=== PATIENT | male | born 1950 | race Caucasian/White ===

== ENCOUNTER 2019-07-21 13:15 | Emergency (ER) | payer OTHER ==
[2019-07-21] MEDS ORDERED: NA CHLORIDE 0.9% 1,000 ML ONE (14:53)
[2019-07-21 15:11] LABS: Basophils % 0.5 % (0-1.3); Hematocrit 37.7 % (39.6-49.0); Lymphocytes % 14.9 % (15.3-44.8); MPV 8.6 fL (7.6-11.3); RBC Red Blood Cell Count 3.81 M/uL (4.33-5.43)
[2019-07-21] MEDS ORDERED: ONDANSETRON 4 MG/2 ML VIAL ONE (15:16)
[2019-07-21] MEDS ORDERED: MORPHINE 4 MG/ML SYR ONE (15:16)
[2019-07-21 15:31] LABS: Albumin 3.6 g/dL (3.4-5.0); Bilirubin Direct 0.2 mg/dL (0-0.2); Bilirubin Total 0.6 mg/dL (0.2-1.0); Potassium 3.9 mmol/L (3.5-5.1)
--- NOTE | 2019-07-21 16:02 | RAD REPORT ---
EXAM DESCRIPTION: CT - Abdomen Pelvis Wo Contrast - 07/21/2019 3:41 pm CLINICAL HISTORY: r/o appendicitis Right lower quadrant pain COMPARISON: No comparisons TECHNIQUE: Axial [address] imaging of the abdomen and pelvis was performed without IV contrast. No IV contrast was given because of allergy, abnormal renal function, patient refusal or physician re quest. Oral contrast was given. All CT scans are performed using dose optimization technique as appropriate and may include automated exposure control or mA/KV adjustment according to patient size. FINDINGS: No suspicious findings in the lung bases. The liver, spleen and pancreas show no suspicious findings on non-contrast imaging. Gallbladder and b iliary tree are also without suspicious finding. Mild to moderate right-sided hydronephrosis is present secondary to a 4 mm UVJ stone. No other obstru cting or nonobstructing calculi. No significant adrenal finding. Isodense renal masses and pyeloneph ritis cannot be excluded in the absence of IV contrast. The urinary bladder is without significant fi nding. No dilated bowel loops or bowel wall thickening. No appendicitis findings or other acute GI process. No free air, free fluid or inflammatory stranding. No hernia, mass or bulky lymphadenopathy. No suspicious bony findings. IMPRESSION: Mild to moderate right-sided hydronephrosis secondary to a 4 mm UVJ calculus. Full assessment is limited is the absence of IV contrast.
[2019-07-21] MEDS ORDERED: TAMSULOSIN 0.4 MG SR CAP ONE (16:21)
[2019-07-21] MEDS ORDERED: MAGNESIUM SULFATE 1 gm IVPB 1 GM/100 ML BAG IV ONE (16:21)
--- NOTE | 2019-07-21 17:32 | EDPHYS ---
Physician Documentation [facility] Name: Osmin Dias Age: 68 yrs Sex: Male : 1950 Arrival Date: 07/21/2019 Time: 13:24 Bed 24 Private MD: ED Physician Biju Mckenna HPI: 07/21 15:20 This 68 yrs old Male presents to ER via Ambulatory with complaints of kb Abdominal Pain. 15:20 The patient presents with abdominal pain right lower quadrant. Onset: The kb symptoms/episode began/occurred 3 day(s) ago. The symptoms do not radiate. Associated signs and symptoms: none. The symptoms are described as intermittent. Modifying factors: The symptoms are alleviated by nothing, the symptoms are aggravated by pressure. Severity of pain: At its worst the pain was moderate in the emergency department the pain is unchanged. The patient has not experienced similar symptoms in the past. The patient has not recently seen a physician. Historical: - Allergies: 13:44 iodine; la1 - PMHx: 13:44 High Cholesterol; la1 - PSHx: 13:44 Hernia repair; la1 - Immunization history:: Adult Immunizations up to date. - Social history:: Smoking status: Patient/guardian denies using tobacco. - Ebola Screening: : No symptoms or risks identified at this time. ROS: 15:16 Constitutional: Negative for fever, chills, and weight loss, ENT: Negative for injury, kb pain, and discharge, Neck: Negative for injury, pain, and swelling, Cardiovascular: Negative for chest pain, palpitations, and edema, Respiratory: Negative for shortness of breath, cough, wheezing, and pleuritic chest pain, Back: Negative for injury and pain, MS/Extremity: Negative for injury and deformity, Skin: Negative for injury, rash, and discoloration, Neuro: Negative for headache, weakness, numbness, tingling, and seizure. 15:16 Abdomen/GI: Positive for abdominal pain, Negative for nausea, vomiting, and diarrhea. Exam: 15:20 Constitutional: This is a well developed, well nourished patient who is awake, alert, kb and in no acute distress. Head/Face: Normocephalic, atraumatic. Chest/axilla: Normal chest wall appearance and motion. Nontender with no deformity. No lesions are appreciated. Cardiovascular: Regular rate and rhythm with a normal S1 and S2. No gallops, murmurs, or rubs. Normal PMI, no JVD. No pulse deficits. Respiratory: Lungs have equal breath sounds bilaterally, clear to auscultation and percussion. No rales, rhonchi or wheezes noted. No increased work of breathing, no retractions or nasal flaring. Back: No spinal tenderness. No costovertebral tenderness. Full range of motion. Skin: Warm, dry with normal turgor. Normal color with no rashes, no lesions, and no evidence of cellulitis. MS/ Extremity: Pulses equal, no cyanosis. Neurovascular intact. Full, normal range of motion. Neuro: Awake and alert, GCS 15, oriented to person, place, time, and situation. Cranial nerves II-XII grossly intact. Motor strength 5/5 in all extremities. Sensory grossly intact. Cerebellar exam normal. Normal gait. 15:20 Abdomen/GI: Inspection: abdomen appears normal, Bowel sounds: normal, in all quadrants, Palpation: nontender, in the right upper quadrant, left upper quadrant and left lower quadrant, moderate abdominal tenderness, in the right lower quadrant. Vital Signs: 13:44 BP 147 / 73; Pulse 67; Resp 16; Temp 97.4; Pulse Ox 100% on R/A; la1 14:30 BP 143 / 69; Pulse 66; Resp 16; Pulse Ox 98% on R/A; rv 15:30 BP 127 / 71; Pulse 63; Resp 15; Pulse Ox 97% on R/A; rv 16:00 BP 135 / 64; Pulse 61; Resp 15; Pulse Ox 97% on R/A; rv 17:35 BP 128 / 66; Pulse 62; Resp 16; Pulse Ox 100% on R/A; rv MDM: 14:40 Patient medically screened. kb 15:16 Data reviewed: vital signs, nurses notes. Data interpreted: Pulse oximetry: on room air kb is 100 %. Interpretation: normal. 16:09 Counseling: I had a detailed discussion with the patient and/or guardian regarding: the kb historical points, exam findings, and any diagnostic results supporting the discharge/admit diagnosis, lab results, radiology results, the need for outpatient follow up, a urologist, to return to the emergency department if symptoms worsen or persist or if there are any questions or concerns that arise at home. 07/21 14:41 Order name: Basic Metabolic Panel ms 07/21 14:41 Order name: CBC with Diff ms 07/21 14:41 Order name: Creatinine for Radiology ms 07/21 14:41 Order name: Hepatic Function ms 07/21 14:41 Order name: Lipase ms 07/21 15:14 Order name: CBC with Automated Diff; Complete Time: 15:14 EDMS 07/21 15:31 Order name: Basic Metabolic Panel; Complete Time: 15:38 EDMS 07/21 15:31 Order name: Liver (Hepatic) Function; Complete Time: 15:38 EDMS 07/21 15:32 Order name: Lipase; Complete Time: 15:38 EDMS 07/21 16:06 Order name: CT; Complete Time: 16:07 EDMS 07/21 14:41 Order name: IV Saline Lock; Complete Time: 15:20 ms 07/21 14:41 Order name: Labs collected and sent; Complete Time: 15:20 ms Administered Medications: 15:00 Drug: NS 0.9% 1000 ml Route: IV; Rate: 1000 ml; Site: right antecubital; rv 16:24 Follow up: IV Status: Completed infusion; IV Intake: 1000ml rv 15:20 Drug: Zofran 4 mg Route: IVP; Site: right antecubital; rv 16:24 Follow up: Response: No adverse reaction; Nausea is decreased rv 15:20 Drug: morphine 4 mg Route: IVP; Site: right antecubital; rv 16:23 Follow up: Response: No adverse reaction; Marked relief of symptoms; Pain is decreased; rv RASS: Alert and Calm (0) 16:23 Drug: Flomax 0.4 mg Route: PO; rv 17:33 Follow up: Response: No adverse reaction rv 16:23 Drug: Magnesium Sulfate 1 grams Route: IVPB; Infused Over: 1 hrs; Site: right rv antecubital; 17:33 Follow up: IV Status: Completed infusion; IV Intake: 100ml rv Disposition: 18:48 Co-signature as Attending Physician, Biju Mckenna MD. rn Disposition: 07/21/19 16:18 Discharged to Home. Impression: Calculus of kidney and ureter. - Condition is Stable. - Discharge Instructions: Kidney Stones, [id number], Dietary Guidelines to Help Prevent Kidney Stones. - Prescriptions for Tylenol- Codeine #3 300-30 mg Oral Tablet - take 2 tablets by ORAL route every 6 hours As needed; 14 tablet. Zofran 4 mg Oral Tablet - take 1 tablet by ORAL route every 6 hours As needed; 20 tablet. Flomax 0.4 mg Oral Capsule, Sust. Release 24 hr - take 1 capsule by ORAL route once daily; 10 capsule. Diclofenac Sodium 75 mg Oral Tablet, Delayed Release (E.C.) - take 1 tablet by ORAL route 2 times per day As needed; 30 tablet. Macrobid 100 mg Oral Capsule - take 1 capsule by ORAL route every 12 hours for 7 days; 14 capsule. - Medication Reconciliation Form, Thank You Letter, Antibiotic Education, Prescription Opioid Use form. - Follow up: Emergency Department; When: As needed; Reason: Worsening of condition. Follow up: Private Physician; When: 2 - 3 days; Reason: Recheck today's complaints, Continuance of care, Re-evaluation by your physician. Follow up: Jim Ramirez MD; When: 2 - 3 days; Reason: Recheck today's complaints. Signatures: Dispatcher [employer] EDLily Hansen, PIN[employer]-Annmarie Orellana ms, Roman, MD MD rn Candido, Gianni RN RN la1 Tiago Waters RN RN rv Corrections: (The following items were deleted from the chart) 16:19 16:18 07/21/2019 16:18 Discharged to Home. Impression: Calculus of kidney and ureter. kb Condition is Stable. Forms are Medication Reconciliation Form, Thank You Letter, Antibiotic Education, Prescription Opioid Use. Follow up: Emergency Department; When: As needed; Reason: Worsening of condition. Follow up: Private Physician; When: 2 - 3 days; Reason: Recheck today's complaints, Continuance of care, Re-evaluation by your physician. kb 17:35 16:19 07/21/2019 16:18 Discharged to Home. Impression: Calculus of kidney and ureter. rv Condition is Stable. Discharge Instructions: Kidney Stones, [id number], Dietary Guidelines to Help Prevent Kidney Stones. Prescriptions for Tylenol-Codeine #3 300-30 mg Oral Tablet - take 2 tablets by ORAL route every 6 hours As needed; 14 tablet, Zofran 4 mg Oral Tablet - take 1 tablet by ORAL route every 6 hours As needed; 20 tablet, Flomax 0.4 mg Oral Capsule, Sust. Release 24 hr - take 1 capsule by ORAL route once daily; 10 capsule, Diclofenac Sodium 75 mg Oral Tablet, Delayed Release (E.C.) - take 1 tablet by ORAL route 2 times per day As needed; 30 tablet, Macrobid 100 mg Oral Capsule - take 1 capsule by ORAL route every 12 hours for 7 days; 14 capsule. and Forms are Medication Reconciliation Form, Thank You Letter, Antibiotic Education, Prescription Opioid Use. Follow up: Emergency Department; When: As needed; Reason: Worsening of condition. Follow up: Private Physician; When: 2 - 3 days; Reason: Recheck today's complaints, Continuance of care, Re-evaluation by your physician. Follow up: Jim Ramirez; When: 2 - 3 days; Reason: Recheck today's complaints. kb
--- NOTE | 2019-07-21 17:32 | ER ---
Nurse's Notes [facility] Name: Osmin Dias Age: 68 yrs Sex: Male : 1950 Arrival Date: 07/21/2019 Time: 13:24 Bed 24 Private MD: Diagnosis: Calculus of kidney and ureter Presentation: 07/21 13:43 Presenting complaint: Patient states: RLQ abd pain, vomiting. Transition of care: la1 patient was not received from another setting of care. Onset of symptoms was July 21, 2019. Risk Assessment: Do you want to hurt yourself or someone else? Patient reports no desire to harm self or others. Initial Sepsis Screen: Does the patient meet any 2 criteria? No. Patient's initial sepsis screen is negative. Does the patient have a suspected source of infection? No. Patient's initial sepsis screen is negative. Care prior to arrival: None. 13:43 Method Of Arrival: Ambulatory la1 13:43 Acuity: RAMIREZ 3 la1 Historical: - Allergies: 13:44 iodine; la1 - PMHx: 13:44 High Cholesterol; la1 - PSHx: 13:44 Hernia repair; la1 - Immunization history:: Adult Immunizations up to date. - Social history:: Smoking status: Patient/guardian denies using tobacco. - Ebola Screening: : No symptoms or risks identified at this time. Screenin:02 Abuse screen: Denies threats or abuse. Denies injuries from another. Nutritional rv screening: No deficits noted. Tuberculosis screening: No symptoms or risk factors identified. Fall Risk None identified. Assessment: 15:01 General: Appears in no apparent distress. uncomfortable, Behavior is calm, cooperative. rv Pain: Complains of pain in right lower quadrant. Neuro: Level of Consciousness is awake, alert, obeys commands, Oriented to person, place, time, situation. Cardiovascular: Patient's skin is warm and dry. Respiratory: Airway is patent. GI: Bowel sounds present X 4 quads. Abd is soft and non tender X 4 quads. : No signs and/or symptoms were reported regarding the genitourinary system. EENT: No signs and/or symptoms were reported regarding the EENT system. Derm: Skin is intact. Musculoskeletal: No signs and/or symptoms reported regarding the musculoskeletal system. 16:26 Reassessment: Patient appears in no apparent distress at this time. Patient and/or rv family updated on plan of care and expected duration. Pain level reassessed. Patient is alert, oriented x 3, equal unlabored respirations, skin warm/dry/pink. NOMI AUGUSTIN TALKED TO THE PATIENT AT BEDSIDE AND EXPLAINED THE RESULTS AND PLAN OF CARE. PATIENT AGREED. INFUSING IV MAGNESIUM, FOR DISCHARGE ONCE CONSUMED. Patient denies pain at this time. Patient states feeling better. Patient states symptoms have improved. Vital Signs: 13:44 BP 147 / 73; Pulse 67; Resp 16; Temp 97.4; Pulse Ox 100% on R/A; la1 14:30 BP 143 / 69; Pulse 66; Resp 16; Pulse Ox 98% on R/A; rv 15:30 BP 127 / 71; Pulse 63; Resp 15; Pulse Ox 97% on R/A; rv 16:00 BP 135 / 64; Pulse 61; Resp 15; Pulse Ox 97% on R/A; rv 17:35 BP 128 / 66; Pulse 62; Resp 16; Pulse Ox 100% on R/A; rv ED Course: 13:24 Patient arrived in ED. as 13:43 Triage completed. la1 13:44 Arm band placed on right wrist. la1 14:39 Lily Augustin [facility]-C [facility]. kb 14:39 Biju Mckenna MD is Attending Physician. kb 14:50 Inserted saline lock: 22 gauge in right antecubital area, using aseptic technique. rv Blood collected. 14:53 Tiago Waters, FRANCES is Primary Nurse. rv 15:02 Patient has correct armband on for positive identification. Bed in low position. Call rv light in reach. Side rails up X 1. Adult w/ patient. Pulse ox on. NIBP on. 16:19 Jim Ramirez MD is Referral Physician. kb 16:28 No provider procedures requiring assistance completed. rv 17:34 IV discontinued, intact, bleeding controlled, No redness/swelling at site. Pressure rv dressing applied. Administered Medications: 15:00 Drug: NS 0.9% 1000 ml Route: IV; Rate: 1000 ml; Site: right antecubital; rv 16:24 Follow up: IV Status: Completed infusion; IV Intake: 1000ml rv 15:20 Drug: Zofran 4 mg Route: IVP; Site: right antecubital; rv 16:24 Follow up: Response: No adverse reaction; Nausea is decreased rv 15:20 Drug: morphine 4 mg Route: IVP; Site: right antecubital; rv 16:23 Follow up: Response: No adverse reaction; Marked relief of symptoms; Pain is decreased; rv RASS: Alert and Calm (0) 16:23 Drug: Flomax 0.4 mg Route: PO; rv 17:33 Follow up: Response: No adverse reaction rv 16:23 Drug: Magnesium Sulfate 1 grams Route: IVPB; Infused Over: 1 hrs; Site: right rv antecubital; 17:33 Follow up: IV Status: Completed infusion; IV Intake: 100ml rv Intake: 16:24 IV: 1000ml; Total: 1000ml. rv 17:33 IV: 100ml; Total: 1100ml. rv Outcome: 16:18 Discharge ordered by . kb 17:34 Discharged to home via wheelchair, with family. rv 17:34 Condition: improved 17:34 Discharge instructions given to patient, family, Instructed on discharge instructions, follow up and referral plans. medication usage, Demonstrated understanding of instructions, follow-up care, medications, Prescriptions given X 5 17:35 Patient left the ED. rv Signatures: Lily Augustin, PINEDA-C PINEDA-Cinthia Mckenzie Lee, RN RN la1 Tiago Waters RN RN rv
[2019-07-21 19:50] VITALS: TEMP 97.4
[2019-07-21 19:56] VITALS: BP 128/66; O2SAT 100
== END 2019-07-21 17:35 | disposition home or self-care (01) ==
LOC: ER 13:15
DX: N20.2 Calculus of kidney with calculus of ureter (principal); Z91.048 Other nonmedicinal substance allergy status
CPT/HCPCS: 96365; 96361; 85025; 80048; 36415; 80076; 83690; 74176; 96375; 99284; J3475; J7030; J2405